=== PATIENT | female | born 1945 | race Caucasian/White ===

== ENCOUNTER → 2016-11-06 12:37 | Outpatient (CLI) | payer MEDICARE ==
[2014-12-01 11:21] VITALS: BMI 27.3
[~2016-11-06 12:37] MED LIST: ASPIRIN EC81 M1 PO; HYDROCODON-ACE1 EAC7 PO; OMEPRAZOLE PO; OMNIPRED5 ML RIGHT EYE; PEPCID AC20 MG PO; SYNTHROID100 MCG PO; SYSTANE 0.3-0.4%5 ML EACH EYE; TEMAZEPAM PO; ULTRAM50 MG PO; VIIBRYD40 MG PO; ZOCOR40 MG PO; [UNRECOGNIZED DRUG - OTHER] PO
== END | disposition home or self-care (01) ==
LOC: D.MRI 12:37
DX: M25.511 Pain in right shoulder (principal); M25.512 Pain in left shoulder

== ENCOUNTER → 2017-10-02 13:46 | Outpatient (CLI) | payer OTHER ==
[2014-12-01 11:21] VITALS: BMI 27.3
== END | disposition home or self-care (01) ==
LOC: D.MRI 13:46
DX: M75.41 Impingement syndrome of right shoulder (principal)

== ENCOUNTER → 2018-03-11 15:22 | Outpatient (CLI) | payer OTHER ==
[2014-12-01 11:21] VITALS: BMI 27.3
== END | disposition home or self-care (01) ==
LOC: D.LABREF 15:22
DX: M19.012 Primary osteoarthritis, left shoulder (principal)

== ENCOUNTER → 2018-03-12 09:41 | Outpatient (CLI) | payer OTHER ==
[2014-12-01 11:21] VITALS: BMI 27.3
== END | disposition home or self-care (01) ==
LOC: D.LABREF 09:41
DX: M19.012 Primary osteoarthritis, left shoulder (principal)

== ENCOUNTER 2018-04-16 07:00 | Inpatient (IN) | payer OTHER ==
[2018-04-11 14:42] LABS: BASOPHILS 0.8 % (0-2); EOSINOPHILS 1.9 % (0-7); HEMATOCRIT 41.5 % (36.0-48.0); HEMOGLOBIN 13.5 g/dL (12-16); IMMATURE GRANULOCYTES 0.3 % (0-5); LYMPHOCYTES 28.3 % (15-50); MCH 30.9 pg (26.0-34.0); MCHC 32.5 g/dL (31.0-37.0); MEAN PLATELET VOLUME 10.5 fL (7.4-10.4); NEUTROPHILS 61.7 % (40-80); PLATELET COUNT 249 10x3/uL (130-400); RBC 4.37 10x6/uL (4.00-5.40); RDW 13.8 % (11.5-14.5); WBC 6.5 10x3/uL (4.8-10.8)
[2018-04-11 14:53] LABS: APTT 45.1 SECONDS (22.8-39.4); INR 0.95 (0.85-1.17); PROTIME 12.2 SECONDS (11.6-15.0)
[2018-04-11 14:56] LABS: ANION GAP 14.9 mmol/L (8-16); CALCIUM 9.3 mg/dL (8.5-10.1); CARBON DIOXIDE 27.4 mmol/L (21.0-32.0); CREATININE - SERUM 1.2 mg/dL (0.6-1.3); POTASSIUM - SERUM 4.3 mmol/L (3.5-5.1)
[2018-04-11 15:04] LABS: APPEARANCE CLEAR (CLEAR); BILIRUBIN NEGATIVE (NEGATIVE); COLOR YELLOW (YELLOW); EPITHELIAL CELLS 0-5 /hpf (0-5); GLUCOSE NEGATIVE (NEGATIVE); KETONE NEGATIVE (NEGATIVE); NITRITE NEGATIVE (NEGATIVE); PROTEIN NEGATIVE (NEGATIVE); RED CELLS - URINE OCC /hpf (0-5); UROBILINOGEN NORMAL (NORMAL); WHITE CELLS - URINE 0-5 /hpf (0-5)
[~2018-04-16] VITALS: Ht 172.7 cm; Wt 78.6 kg
[~2018-04-16 07:00] MED LIST changes: +CYCLOBENZAPRINE5 MG PO
[2018-04-16] MEDS ORDERED: BUPROPION XL300 MG PO (07:51)
[2018-04-16] MEDS ORDERED: MOBIC7.5 MG PO (07:52)
[2018-04-16 07:53] VITALS: BP 102/74; BMI 26.3
--- NOTE | 2018-04-16 13:47 | OP ---
PATIENT NAME: TRACI MAYFIELD MEDICAL RECORD: [id number] :[birth year] [place] [place] [facility] [place]:04/16/18 SURGEON: DORON VILLAVICENCIO DO DATE OF OPERATION: 04/16/2018 PROCEDURE PERFORMED: Left reverse total shoulder arthroplasty. PREOPERATIVE DIAGNOSES: Left shoulder rotator cuff arthropathy and osteoarthritis. POSTOPERATIVE DIAGNOSES: Left shoulder rotator cuff arthropathy and osteoarthritis. INDICATIONS: Ms. Mayfield is a 72-year-old female that I have been treating nonoperatively for approximately a year or more with injections. She had an MRI of the left shoulder, which showed a partial rotator cuff tear over a year ago. She had been nursing it along and she got tired of the pain and weakness and got x-rays a couple months ago and it did show a high riding humeral head as well as severe osteoarthritis of the left shoulder. Knowing that, informing her that the best option would probably be reverse total shoulder as the quick recovery rather than doing a rotator cuff repair with the total shoulder, she elected to go with reverse total shoulder. She is aware of the risks and benefits including infection, bleeding, damage to nerve and vessels, need for further surgery and she consented to the procedure. SURGEON: Doron Villavicencio DO DIRECTOR OF CHILD WELFARE SERVICES: Miguel Cosme, advanced nurse practitioner DESCRIPTION OF PROCEDURE: Miguel closed and held retractors for me and assisted. Without his assistance, the surgery could not have been done. The patient received a block in the preoperative area, was given 900 mg of clindamycin preoperatively, she was taken to the operative suite, laid in supine position. LMA was placed to the left shoulder. She was then positioned in the beach chair position. The left shoulder was then prepped and draped in sterile fashion. A timeout was performed. Everyone was in agreeance with the correct side, site, patient and procedure. Incision began at the deltopectoral interval. The cephalic vein was taken medially and anticoagulation needed at that time was done with the Aquamantys. The clavipectoral fascia was then incised and the pec was released at the proximal centimeter of the insertion. The long head of the biceps tendon was tenodesed at that site as well and then cut, and then the rotator interval was opened up with scissors. The subscapularis tendon was then tagged and peeled off the humerus. The rotator cuff tear was noted in the supraspinatus at that time. There were a few fibers remaining and these were torn as soon as the shoulder was externally rotated. Once the shoulder was externally rotated, the osteophytes were removed and then a cutting guide was put up to the shoulder and marked and then it was cut with a saw. The humeral head was removed and the glenoid was exposed. The labrum was removed at that time and exposed. The centering pin was used and the drill and reamer. A 25 baseplate was put on with a 40-mm screw. Then, 2 screws were put superior and inferior, the inferior one was 26, the superior one was 22-mm. Had a good fixation with those 3 screws and then a lateralized sphere was put on after reaming around the baseplate. Once the screw was put on, impacted in place and tightened down, the humeral head was exposed of what was left, the humeral shaft and the neck, and then broaching began with the version maida at 30 OPERATIVE REPORT [id number] TRACI MAYFIELD, broached to a 6, trialled that, it seemed to fit very well. A good tight fit with the conjoined tendon with one finger tight, the deltoid fibers tight as well. This was then dislocated and then the trial was removed and the actual implant was put in a 6 stem with the 6 poly, and after irrigating thoroughly, this was reduced and a range of motion was done with the shoulder. She had good range of motion and this was thoroughly irrigated. The tobramycin and vancomycin powder was then put in deep in the wound as well as Surgicel beads. Drain was then put out through the deltoid and left in the shoulder. The drain was then sewed in with a 2-0 nylon at that time. The interval was then closed with a 0 Vicryl in a simple fashion and then the skin was closed with 2-0 Vicryl in an inverted interrupted fashion and 4-0 Monocryl ran on the skin and Prineo skin glue put on the skin. The patient was then awakened and taken to recovery in stable condition. The closing was done by Miguel Cosme. Blood loss was approximately 200 mL. COMPLICATIONS: None. TRANSINT:[id number] Voice Confirmation ID: [id number] DOCUMENT ID: [id number] DORON VILLAVICENCIO DO at 1347 CC: [id number] DICTATION DATE: 04/16/18 1215 CYLINDER DEVALVER: 04/16/18 1340 ADM IN [place] [id number] [place] [id number]
--- NOTE | 2018-04-16 14:45 | NUR ---
PT ABLE TO VOID AT THIS TIME.
--- NOTE | 2018-04-16 15:18 | NUR ---
PT RESTING COMFORTABLY AT THIS TIME, PLAN OF CARE DISCUSSED, PT VERBALIZED UNDERSTANDING, NO ACUTE DISTRESS NOTED, WILL CONTINUE TO MONITOR.
--- NOTE | 2018-04-16 16:39 | NUR ---
NO CHANGES IN ASSESSMENT, PT RESTING COMFOTABLY AT THIS TIME, NO ACUTE DISTRESS NOTED, WILL CONTINUE TO MONITOR.
--- NOTE | 2018-04-16 17:59 | NUR ---
REPORT CALLED TO MERCEDES GARZA AT THIS TIME. PT LEAVING OPS SURGERY AT THIS TIME.
--- NOTE | 2018-04-16 19:45 | NUR ---
PT REFUSED SCDS AT THIS TIME
[2018-04-16 20:00] VITALS: BP 117/55
--- NOTE | 2018-04-16 21:00 | NUR ---
PT SITTING UP IN BED, NO SIGNS OF DISTRESS. ALERT AND ORIENTED. IV RIGHT HAND INFUSING 1/2NS @ 50. LEFT ARM IN SLING. PT STATES SHE IS NOT FEELING MUCH IN ARM D/T BLOCK BUT HAS CHRONIC PAIN IN BACK STATING 12/03. GAVE DILAUDID ORDERED. GAVE NIGHT TIME MEDS. NO OTHER NEEDS OR COMPLAINTS AT THIS TIME. CL IN REACH, WILL CONTINUE TO MONITOR
[2018-04-17] VITALS: BP 105/58
[2018-04-17 00:37] VITALS: Ht 172.7 cm; Wt 78.6 kg
[2018-04-17 04:00] VITALS: BP 123/69
[2018-04-17 05:51] LABS: HEMATOCRIT 35.4 % (36.0-48.0); HEMOGLOBIN 11.7 g/dL (12-16); MCHC 33.1 g/dL (31.0-37.0); MCV 93.7 fL (80.0-100.0); MEAN PLATELET VOLUME 10.5 fL (7.4-10.4); RBC 3.78 10x6/uL (4.00-5.40); RDW 13.7 % (11.5-14.5); WBC 12.5 10x3/uL (4.8-10.8)
--- NOTE | 2018-04-17 08:20 | NUR ---
PT SEEN AND ASSESSED. STATES PAIN IN LEFT SHOULDER 08/02. PAIN MEDS GIVEN. DRESSING TO LEFT SHOULDER CLEAN DRY AND INTACT WITH BRUISING NOTED TO LEFT UPPER ARM. LEFT ARM IN SLING WITH ICE PACK NOTED. REFUSES SCDS AT PRESENT. CALL LIGHT IN REACH.
[2018-04-17 09:16] VITALS: BP 125/76
[2018-04-17 10:19] LABS: ALKALINE PHOSPHATASE 73 U/L (46-116); ALT (SGPT) 22 U/L (10-68); BILIRUBIN - TOTAL 0.31 mg/dL (0.2-1.3); CALC OSMOLALITY 282 mosm/kg (275-300); CALCIUM 8.6 mg/dL (8.5-10.1); CARBON DIOXIDE 23.4 mmol/L (21.0-32.0); CHLORIDE - SERUM 105 mmol/L (98-107); CREATININE - SERUM 0.8 mg/dL (0.6-1.3); GLUCOSE 132 mg/dL (74-106); POTASSIUM - SERUM 4.2 mmol/L (3.5-5.1); PROTEIN - SERUM 6.5 g/dL (6.4-8.2); SODIUM 140 mmol/L (136-145); UREA NITROGEN 18 mg/dL (7-18); eGFR NON AFRICAN AMERICAN 75 mL/min (90-120)
[2018-04-17 12:00] VITALS: BP 105/48
[2018-04-17] MEDS ORDERED: VISTARIL50 MG PO (14:45)
[2018-04-17] MEDS ORDERED: oxyCODONE IR PO (14:45)
--- NOTE | 2018-04-17 15:39 | MORECARE ---
CASE MANAGEMENT DISCHARGE SUMMARY PATIENT: TRACI MAYFIELD UNIT: [id number] ADM DATE: 04/16/18 AGE: 72 : 46 SEX: F ROOM/BED: D.2223 AUTHOR: EKTA LOZANO PHYSICIAN: REFERRING PHYSICIAN: BELIA VILLAVICENCIO DO DATE OF SERVICE: 04/17/18 Discharge Plan Patient Name: TRACI MAYFIELD Facility: [facility]:[place] : 1945 Planned Disposition: Home Anticipated Discharge Date: 04/17/18 Discharge Date: Expected LOS: 1 Initial Reviewer: [email or web address] Initial Review Date: 04/17/2018 Generated: 04/17/18 4:39 pm Patient Name: TRACI MAYFIELD Page [id number] at 1539 All edits/amendments must be made on the electronic document DICTATION DATE: 04/17/18 153 LEADLIGHTER: ANDRES 04/17/18 153 RPT#: [id number] DC DATE: STATUS: ADM IN [facility] [address] [place] [address] END OF REPORT
--- NOTE | 2018-04-17 15:50 | MORECARE ---
CASE MANAGEMENT DISCHARGE SUMMARY PATIENT: TRACI MAYFIELD UNIT: [id number] ADM DATE: 04/16/18 AGE: 72 : 46 SEX: F ROOM/BED: D.2223 AUTHOR: MARTA,DOC PHYSICIAN: REFERRING PHYSICIAN: BELIA VILLAVICENCIO DO DATE OF SERVICE: 04/17/18 Discharge Plan Patient Name: TRACI MAYFIELD Facility: [facility]:[place] : 1945 Planned Disposition: Home Anticipated Discharge Date: 04/17/18 Discharge Date: Expected LOS: 1 Initial Reviewer: [email or web address] Initial Review Date: 04/17/2018 Generated: 04/17/18 4:50 pm Comments DCP- Discharge Planning Updated by [email or web address]: Carline Gilliland on 04/17/18 2:[address] Patient Name: TRACI MAYFIELD Admission Status: Elective Accout number: [id number] Admission Date: 04-16-2018 : 1945 Admission Diagnosis: Attending: BELIA VILLAVICENCIO Current LOS: 1 Anticipated DC Date: 04-17-2018 Planned Disposition: Home Primary Insurance: [employer] Discharge Planning Comments: CM met with patient and her to discuss discharge planning/needs. She lives with her in a single story house. She is independent with all ADL's and IADL's. She is wearing her sling on her left arm. States she has no other DME needs at this time. She is going home today, her is driving her home. Declines need for home health. CM will continue to follow and assist with discharge planning/needs. Inbound Call Center Representative: Carline Gilliland DCPIA - Discharge Planning Initial Assessment Updated by [email or web address]: Carline Gilliland on 04/17/18 3:42 pm * Is the patient Alert and Oriented? Yes * How many steps to enter\exit or inside your home? 1/0 * PCP Vik Schmidt in [place] * Pharmacy [facility] [place] [address] * Preadmission Environment Home with Family * ADLs Independent * Equipment CPAP * List name and contact numbers for known caregivers / representatives who currently or will assist patient after discharge: Jordy - - [phone] * Verbal permission to speak to the caregivers and representatives has been obtained from the patient. Yes * Community resources currently utilized None * Please name any agencies selected above. CPAP supplies from [facility] * Additional services required to return to the preadmission environment? No * Can the patient safely return to the preadmission environment? Yes * Has this patient been hospitalized within the prior 30 days at any hospital? No Last DP export: 04/17/18 2:39 p Patient Name: TRACI MAYFIELD Page [phone] at 1550 All edits/amendments must be made on the electronic document DICTATION DATE: 04/17/181548 PALM AND BACK FORGER: ANDRES 04/17/181548 RPT#: [id number] DC DATE: STATUS: ADM IN [facility] [address] [place] [address] END OF REPORT
--- NOTE | 2018-04-17 15:54 | NUR ---
DISCHARGE INSTRUCTIONS GIVEN. SEEMS TO UNDERSTAND INSTURCITONS. IV OUT TIP INTACT. NO SIGNS OF DISTRESS. EDITH DRAIN REMOVED BY DOCTOR. LEFT WITH HOSPITAL STAFF TO PERSONAL RIDE TO GO HOME WITH .
--- NOTE | 2018-04-19 10:26 | MORECARE ---
CASE MANAGEMENT DISCHARGE SUMMARY PATIENT: TRACI MAYFIELD UNIT: [id number] ADM DATE: 04/16/18 AGE: 72 : 47 SEX: F ROOM/BED: D.2223 AUTHOR: MARTADOC PHYSICIAN: REFERRING PHYSICIAN: BELIA VILLAVICENCIO DO DATE OF SERVICE: 04/19/18 Discharge Plan Patient Name: TRACI MAYFIELD Facility: [facility]:[place] : 1945 Planned Disposition: Home Anticipated Discharge Date: 04/17/18 Discharge Date: 04/17/2018 Expected LOS: 1 Initial Reviewer: [email or web address] Initial Review Date: 04/17/2018 Generated: 04/19/18 11:26 am Comments DCP- Discharge Planning Updated by [email or web address]: Carline Gilliland on 04/17/18 2:[address] Patient Name: TRACI MAYFIELD Admission Status: Elective Accout number: [id number] Admission Date: 04-16-2018 : 1945 Admission Diagnosis: Attending: BELIA VILLAVICENCIO Current LOS: 1 Anticipated DC Date: 04-17-2018 Planned Disposition: Home Primary Insurance: [employer] Discharge Planning Comments: CM met with patient and her to discuss discharge planning/needs. She lives with her in a single story house. She is independent with all ADL's and IADL's. She is wearing her sling on her left arm. States she has no other DME needs at this time. She is going home today, her is driving her home. Declines need for home health. CM will continue to follow and assist with discharge planning/needs. Process Control Manager: Carline Gilliland DCPIA - Discharge Planning Initial Assessment Updated by [email or web address]: Carline Gilliland on 04/17/18 3:42 pm * Is the patient Alert and Oriented? Yes * How many steps to enter\exit or inside your home? 1/0 * PCP Vik Schmidt in [place] * Pharmacy [facility] [place] [address] * Preadmission Environment Home with Family * ADLs Independent * Equipment CPAP * List name and contact numbers for known caregivers / representatives who currently or will assist patient after discharge: Jordy - - [phone] * Verbal permission to speak to the caregivers and representatives has been obtained from the patient. Yes * Community resources currently utilized None * Please name any agencies selected above. CPAP supplies from [facility] * Additional services required to return to the preadmission environment? No * Can the patient safely return to the preadmission environment? Yes * Has this patient been hospitalized within the prior 30 days at any hospital? No Last DP export: 04/17/18 2:50 p Patient Name: TRACI MAYFIELD Page [id number] at 1026 All edits/amendments must be made on the electronic document DICTATION DATE: 04/19/18 1025 MEDIA SALES REPRESENTATIVE: ANDRES 04/19/18 1025 RPT#: [id number] DC DATE:04/17/18 STATUS: DIS IN [facility] [address] [place] [address] END OF REPORT
== END 2018-04-17 15:56 | disposition home or self-care (01) | DRG 483 ==
LOC: D.SDCHOLD → D.MS 07:00 → D.SDCHOLD 07:00 → D.M3 18:19 → D.MS 18:33
PROVIDERS: ADMIT Orthopaedic Surgery
PROC: 0RRK00Z Replacement of Left Shoulder Joint with Reverse Ball and Socket Synthetic Substitute, Open Approach (ICD-10-PCS; principal; 2018-04-16 09:30)
DX: M19.012 Primary osteoarthritis, left shoulder (principal)

== ENCOUNTER → 2018-10-08 09:41 | Outpatient (CLI) | payer OTHER ==
[2018-04-17 00:37] VITALS: BMI 26.3
[~2018-10-08 09:41] MED LIST changes: +BUPROPION XL300 MG PO; +MOBIC7.5 MG PO; +VISTARIL50 MG PO; +oxyCODONE IR PO
== END | disposition home or self-care (01) ==
LOC: D.MRI 09:41
PROVIDERS: ATTEND Orthopaedic Surgery
DX: M75.101 Unspecified rotator cuff tear or rupture of right shoulder, not specified as traumatic (principal)

== ENCOUNTER 2018-11-11 13:19 | Inpatient (IN) | payer OTHER ==
[~2018-11-11] VITALS: Ht 172.7 cm; Wt 81.8 kg
[~2018-11-11 13:19] MED LIST changes: -OMEPRAZOLE PO; +OMEPRAZOLE20 M1 PO; -OMNIPRED5 ML RIGHT EYE; +PREDNISOLONE 1% LEFT EYE; -TEMAZEPAM PO; +TEMAZEPAM30 MG PO
[2018-12-16] MEDS ORDERED: ZANAFLEX4 MG PO ×2 (10:29→10:30)
[2018-12-16] MEDS ORDERED: EFFEXOR37.5 MG PO (10:31)
[2018-12-16] MEDS ORDERED: UNISOM SLEEP AI25 MG PO (10:34)
[2018-12-16 11:48] LABS: BASOPHILS 0.8 % (0-2); HEMATOCRIT 41.1 % (36.0-48.0); HEMOGLOBIN 13.5 g/dL (12-16); IMMATURE GRANULOCYTES 0.2 % (0-5); LYMPHOCYTES 29.4 % (15-50); MCH 30.6 pg (26.0-34.0); MCHC 32.8 g/dL (31.0-37.0); MCV 93.2 fL (80.0-100.0); MEAN PLATELET VOLUME 10.5 fL (7.4-10.4); MONOCYTES 6.6 % (2-11); PLATELET COUNT 270 10x3/uL (130-400); RBC 4.41 10x6/uL (4.00-5.40); RDW 13.8 % (11.5-14.5); WBC 6.5 10x3/uL (4.8-10.8)
[2018-12-16 12:02] LABS: ANION GAP 11.7 mmol/L (8-16); CALCIUM 9.3 mg/dL (8.5-10.1); CARBON DIOXIDE 30.1 mmol/L (21.0-32.0); CREATININE - SERUM 0.9 mg/dL (0.6-1.3); POTASSIUM - SERUM 3.8 mmol/L (3.5-5.1); T4 THYROXINE 6.5 ug/dL (4.7-13.3); THYROID STIMULATING HORMONE 1.37 uIU/mL (0.36-3.74)
[2018-12-16 12:06] LABS: INR 1.01 (0.85-1.17); PROTIME 12.8 SECONDS (11.6-15.0)
[2018-12-16 12:07] LABS: APPEARANCE HAZY (CLEAR); APTT 49.5 SECONDS (22.8-39.4); BILIRUBIN NEGATIVE (NEGATIVE); COLOR YELLOW (YELLOW); GLUCOSE NEGATIVE (NEGATIVE); KETONE NEGATIVE (NEGATIVE); NITRITE NEGATIVE (NEGATIVE); PROTEIN NEGATIVE (NEGATIVE); UROBILINOGEN NORMAL (NORMAL); WHITE CELLS - URINE 0-5 /hpf (NEGATIVE)
[2018-12-16 12:08] LABS: BACTERIA FEW /hpf (NEGATIVE); CALCIUM OXALATE CRYSTALS OCC /hpf (NONE SEEN); EPITHELIAL CELLS 0-5 /hpf (0-5); HYALINE CAST RARE /lpf (NONE SEEN); MUCUS <1+ /lpf (NONE SEEN); RED CELLS - URINE RARE /hpf (0-5)
[2018-12-17] VITALS (7 sets, daily range): BP systolic 118–138; BP diastolic 31–79; Ht 172.7 cm; Wt 81.8 kg
--- NOTE | 2018-12-17 12:28 | NUR ---
PLASMA BLADE SET TO 6/8 BOVIE PAD LEFT THIGH [id number] EXP 04/25/20 LAMINAR FLOW IN USE TRAFFIC MONITORED IN AND OUT OF ROOM AND KEPT TO A MINIMUM PREPPED FROM SHOULDER TO FINGERS CIRCUMFERENTIALLY WITH ALCOHOL AND HIBICLENS AND THEN CHLORAPREP
--- NOTE | 2018-12-17 20:00 | NUR ---
ASSESSMENT PER FLOWSHEET. IV SALINE LOCKED TO LEFT WRIST. 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 PLACED ON BIPAP MACHINE. SKIN TEAR TO RT ELBOW NOTED WITH BILATERAL BRUISES NOTED.
--- NOTE | 2018-12-17 20:00 | NUR ---
ASSESSMENT PER FLOWSHEET. INCISION TO RT SHOULDER C/D/I. WEARING SLING. IV PATENT LEFT ARM OF 1/2NS AT 50CC'S/HR SITE CLEAR. SR UP X2 CALL LIGHT WITHIN REACH. CPAP AT BEDSIDE WEARS AT NIGHT.
--- NOTE | 2018-12-17 21:15 | NUR ---
UP TO BR WITH HELP VOIDS WELL. ASSISTED BACK TO BED.
--- NOTE | 2018-12-17 23:00 | NUR ---
IV PLACED ON HOLD. UP INHALLWAY WITH HARMONIC ANALYST WALKED 3 LAPS TOLERATED WELL RETURNED TO ROOM AND IV WAS RECONNECTED.
--- NOTE | 2018-12-18 00:08 | NUR ---
RESTING QUIETLY DENIES NEEDS.
[2018-12-18 00:50] VITALS: BP 140/61
[2018-12-18 05:34] VITALS: BP 102/46
[2018-12-18 06:12] LABS: BASOPHILS 0.1 % (0-2); EOSINOPHILS 0 % (0-7); HEMATOCRIT 33.4 % (36.0-48.0); HEMOGLOBIN 10.9 g/dL (12-16); IMMATURE GRANULOCYTES 0.3 % (0-5); LYMPHOCYTES 10.5 % (15-50); MCH 29.5 pg (26.0-34.0); MCHC 32.6 g/dL (31.0-37.0); MEAN PLATELET VOLUME 10.4 fL (7.4-10.4); MONOCYTES 8.5 % (2-11); NEUTROPHILS 80.6 % (40-80); PLATELET COUNT 223 10x3/uL (130-400); RDW 13.6 % (11.5-14.5)
[2018-12-18 06:27] LABS: ANION GAP 11.5 mmol/L (8-16); CALCIUM 8.8 mg/dL (8.5-10.1); CARBON DIOXIDE 26.4 mmol/L (21.0-32.0); CREATININE - SERUM 0.8 mg/dL (0.6-1.3); POTASSIUM - SERUM 3.9 mmol/L (3.5-5.1)
[2018-12-18 06:41] LABS: MCV 90.3 fL (80.0-100.0); WBC 8.9 10x3/uL (4.8-10.8)
[2018-12-18] MEDS ORDERED: VISTARIL50 MG PO (07:13)
[2018-12-18] MEDS ORDERED: DILAUDID4 MG PO (07:14)
--- NOTE | 2018-12-18 08:12 | NUR ---
PT RESTING IN BED. STATES, "LOP IS 05/05." NO S/S OF ACUTE DISTRESS. CL IN PLACE.
[2018-12-18 09:00] VITALS: BP 110/47
--- NOTE | 2018-12-18 09:31 | MORECARE ---
CASE MANAGEMENT DISCHARGE SUMMARY PATIENT: TRACI MAYFIELD UNIT: [id number] ADM DATE: 12/17/18 AGE: 73 : [birth year] SEX: F ROOM/BED: D.2239 AUTHOR: EKTA LOZANO PHYSICIAN: REFERRING PHYSICIAN: BELIA VILLAVICENCIO DO DATE OF SERVICE: 12/18/18 Discharge Plan Patient Name: TRACI MAYFIELD Facility: [facility]:[place] : 1945 Planned Disposition: Home Anticipated Discharge Date: 12/18/18 Discharge Date: Expected LOS: 1 Initial Reviewer: [email or web address] Initial Review Date: 12/18/2018 Generated: 12/18/18 10:31 am Comments DCP- Discharge Planning Updated by [email or web address]: Carline Gilliland on 12/18/18 8:[address] Patient Name: TRACI MAYFIELD Admission Status: Elective Accout number: [id number] Admission Date: 12-17-2018 : 1945 Admission Diagnosis: Attending: BELIA VILLAVICENCIO Current LOS: 1 Anticipated DC Date: 12-18-2018 Planned Disposition: Home Primary Insurance: [employer] Discharge Planning Comments: CM met with patient to complete initial dc planning assessment. CM educated patient on the CM role and verbal consent given by patient to complete assessment. Patient lives at home with her spouse. At discharge patient plans to return and feels this is a safe discharge. CM discussed availability of home health, rehab services, and medical equipment. Patient denied known discharge needs at this time. States Dr. Villavicencio had ordered an ice machine and a ROM chair for her arm and it has already been delivered to her home. CM will continue to follow and will assist as needed with dc plans/needs. Supervisor Assembly: Carline Gilliland DCPIA - Discharge Planning Initial Assessment Updated by [email or web address]: Carline Gilliland on 12/18/18 9:28 am * Is the patient Alert and Oriented? Yes * How many steps to enter\exit or inside your home? 1/0 * PCP Dr. Vik Schmidt * Pharmacy [facility] [place] [address] * Preadmission Environment Home with Family * ADLs Independent * Equipment CPAP Other * Other Equipment Sling on right arm Ice machine Chair for ROM * List name and contact numbers for known caregivers / representatives who currently or will assist patient after discharge: Jordy morales - [phone] * Verbal permission to speak to the caregivers and representatives has been obtained from the patient. Yes * Community resources currently utilized None * Additional services required to return to the preadmission environment? No * Can the patient safely return to the preadmission environment? Yes * Has this patient been hospitalized within the prior 30 days at any hospital? No Patient Name: TRACI MAYFIELD Page [phone] at 0931 All edits/amendments must be made on the electronic document DICTATION DATE: 12/18/18930 COIN MACHINE COLLECTOR: ANDRES 12/18/18930 RPT#: [id number] DC DATE: STATUS: ADM IN [address] [place] [address] END OF REPORT
[2018-12-18 12:05] VITALS: BP 92/72
[2018-12-18 12:54] LABS: APPEARANCE HAZY (CLEAR); BACTERIA FEW /hpf (NEGATIVE); BILIRUBIN NEGATIVE (NEGATIVE); COLOR YELLOW (YELLOW); EPITHELIAL CELLS OCC /hpf (0-5); GLUCOSE NEGATIVE (NEGATIVE); KETONE NEGATIVE (NEGATIVE); MUCUS <1+ /lpf (NONE SEEN); NITRITE NEGATIVE (NEGATIVE); PROTEIN NEGATIVE (NEGATIVE); UROBILINOGEN NORMAL (NORMAL); WHITE CELLS - URINE RARE /hpf (NEGATIVE)
[2018-12-18 12:56] LABS: AMORPHOUS SEDIMENT <1+ /lpf (NONE SEEN); RED CELLS - URINE RARE /hpf (0-5)
--- NOTE | 2018-12-18 13:32 | NUR ---
IV DC WITH TIP INTACT. URINE COLLECTED USING STERILE TECHNIQUE FOR UA/TEXTILE DESIGNS SALES REPRESENTATIVE. ALL BELONGINGS TAKEN OUT BY . DC INSTRUCTIONS AND EDUCATION DONE WITH PT. PT TAKEN DOWN VIA WC BY MENTAL HEALTH PROGRAM SPECIALIST. NO S/S OF ACUTE DISTRESS.
--- NOTE | 2018-12-18 14:45 | OP ---
PATIENT NAME: TRACI MAYFIELD MEDICAL RECORD: [id number] :[birth year] LOCATION:[id number] ADMISSION DATE:12/17/18 SURGEON: BELIA VILLAVICENCIO DO DATE OF OPERATION: 12/17/2018 PROCEDURE PERFORMED: A right total shoulder arthroplasty with rotator cuff repair using Regeneten. PREOPERATIVE DIAGNOSIS: Right shoulder osteoarthritis with a partial rotator cuff tear of the supraspinatus. POSTOPERATIVE DIAGNOSIS: Right shoulder osteoarthritis with a partial rotator cuff tear of the supraspinatus. INDICATIONS: Ms. Mayfield is a 73-year-old female who had her left shoulder reverse done for rotator cuff tear sometime ago. The right shoulder is bothering her. X-rays were done and severe osteoarthritis was seen on the MRI as well as a partial tear of the supraspinatus. I informed her we could try the reverse but due to the fact that the tear was not complete a total shoulder would be better and do a rotator cuff repair with it. She was okay with that decision and was informed of the risks including infection, bleeding, damage to nerves and vessels, dislocation, need for further surgery, fracture, and she signed the consent. SURGEON: Belia Villavicencio DO. I was assisted by Miguel Cosme, advanced nurse practitioner. DESCRIPTION OF PROCEDURE: The patient received a block by anesthesia in the preoperative area, was given 900 mg of clindamycin preoperatively. The patient was then taken to the operative suite, laid in supine position, given general anesthetic, and intubated. The patient was then positioned in the beach chair position. The right shoulder was prepped and draped in sterile fashion. A timeout was performed and every one was agreeance with the correct side, site, patient and procedure. Once that was completed, the incision was made along the deltopectoral interval with a 10 blade scalpel. The incision was made and then plasma knife was used to go through the subcutaneous fat down to the deltopectoral interval. The deltopectoral interval was then opened. The proximal centimeter of the pec attachment was released and the long head of the bicep tendon was stitched to the stump. The Aquamantys was used throughout the procedure to coagulate any bleeders. The rotator interval was then opened with a pickup and scissors and the subscapularis tendon was tagged. Once it was tagged, the plasma knife was used to peel it off, the lesser tuberosity exposing humeral head. The guide was then put in, humeral head was cut and a simplicity #2 sizer was used. The centering pin was used and the punch was used and the protector for the humeral head was put on. The glenoid was then exposed and the subscap was released with a Holt off the anterior aspect of the scapula. The bone exposure was done and the labrum was removed. A centering pin was used. Reamer was then used for a 30 small glenoid component. This was then sized and drilled and then the peripheral pegs were put in. The trial was then put in. It fit very well and then, cement was mixed. This was irrigated. Cement was put into the holes and on to the prosthesis, it was impacted into place and held into place while the cement dried. Once cement had dried, the humeral head was then exposed. The head was sized and sized to be a 50 x 19. Once this was trialled, the shoulder had good 50% bounce back as it was trialled. This size was then put in. The subscap was repaired with 3, 2.9 JuggerKnot, anchors in OPERATIVE REPORT [id number] TRACI MAYFIELD the lesser tuberosity. Once this was secured down with those JuggerKnots, the supraspinatus was exposed and Regeneten was put on, first stapling medially and then laterally onto the greater tuberosity covering up the 30% bursal-sided tear. The rotator interval was also closed with suture in a [id number] fashion. The shoulder was then ranged and ranged very well in all planes of motion and good 50% bounce back as it was pushed posteriorly. The site was then thoroughly irrigated and the incision was closed with #1 Vicryl simple fashion, 2-0 Vicryl in inverted interrupted fashion, 4-0 Monocryl was run in the skin and Prineo glue was placed on the skin. The patient was then awakened and taken to recovery in stable condition. Blood loss approximately 100 mL. COMPLICATIONS: None. TRANSINT:[id number] Voice Confirmation ID: [id number] DOCUMENT ID: [id number] BELIA VILLAVICENCIO DO at 1445 CC: [id number] DICTATION DATE: 12/17/18 1315 SOCCER REFEREE: 12/17/18 [id number] DIS IN 12/18/18 [facility] [address] [place] [address]
--- NOTE | 2018-12-20 14:17 | MORECARE ---
CASE MANAGEMENT DISCHARGE SUMMARY PATIENT: TRACI MAYFIELD UNIT: [id number] ADM DATE: 12/17/18 AGE: 73 : 47 SEX: F ROOM/BED: D.2239 AUTHOR: EKTA LOZANO PHYSICIAN: REFERRING PHYSICIAN: BELIA VILLAVICENCIO DO DATE OF SERVICE: 12/20/18 Discharge Plan Patient Name: TRACI MAYFIELD Facility: [facility]:[place] : 1945 Planned Disposition: Home Anticipated Discharge Date: 12/18/18 Discharge Date: 12/18/2018 Expected LOS: 1 Initial Reviewer: [email or web address] Initial Review Date: 12/18/2018 Generated: 12/20/18 3:16 pm Comments DCP- Discharge Planning Updated by [email or web address]: Carline Gilliland on 12/18/18 8:[address] Patient Name: TRACI MAYFIELD Admission Status: Elective Accout number: [id number] Admission Date: 12-17-2018 : 1945 Admission Diagnosis: Attending: BELIA VILLAVICENCIO Current LOS: 1 Anticipated DC Date: 12-18-2018 Planned Disposition: Home Primary Insurance: [employer] Discharge Planning Comments: CM met with patient to complete initial dc planning assessment. CM educated patient on the CM role and verbal consent given by patient to complete assessment. Patient lives at home with her spouse. At discharge patient plans to return and feels this is a safe discharge. CM discussed availability of home health, rehab services, and medical equipment. Patient denied known discharge needs at this time. States Dr. Villavicencio had ordered an ice machine and a ROM chair for her arm and it has already been delivered to her home. CM will continue to follow and will assist as needed with dc plans/needs. French Professor: Carline Gilliland DCPIA - Discharge Planning Initial Assessment Updated by [email or web address]: Carline Gilliland on 12/18/18 9:28 am * Is the patient Alert and Oriented? Yes * How many steps to enter\exit or inside your home? 1/0 * PCP Dr. Vik Schmidt * Pharmacy [facility] [place] [address] * Preadmission Environment Home with Family * ADLs Independent * Equipment CPAP Other * Other Equipment Sling on right arm Ice machine Chair for ROM * List name and contact numbers for known caregivers / representatives who currently or will assist patient after discharge: Jordy morales - [phone] * Verbal permission to speak to the caregivers and representatives has been obtained from the patient. Yes * Community resources currently utilized None * Additional services required to return to the preadmission environment? No * Can the patient safely return to the preadmission environment? Yes * Has this patient been hospitalized within the prior 30 days at any hospital? No Last DP export: 12/18/18 8:31 a Patient Name: TRACI MAYFIELD Page [id number] at 1417 All edits/amendments must be made on the electronic document DICTATION DATE: 12/20/181415 FIELD SUPERVISOR SEED PRODUCTION: ANDRES 12/20/181415 RPT#: [id number] DC DATE:12/18/18 STATUS: DIS IN [facility] [address] [place] [address] END OF REPORT
== END 2018-12-18 13:36 | disposition home or self-care (01) | DRG 483 ==
LOC: D.SDCHOLD 12-17 06:57 → D.MS 12-17 06:57 → D.SDCHOLD 12-17 07:00 → D.MS 12-17 14:01
PROVIDERS: Internal Medicine Nephrology; ADMIT Orthopaedic Surgery; ATTEND Orthopaedic Surgery
PROC: 0RRJ0JZ Replacement of Right Shoulder Joint with Synthetic Substitute, Open Approach (ICD-10-PCS; principal; 2018-12-17 09:15)
PROC: 0LQ10ZZ Repair Right Shoulder Tendon, Open Approach (ICD-10-PCS; 2018-12-17 09:15)
DX: M19.011 Primary osteoarthritis, right shoulder (principal); F17.213 Nicotine dependence, cigarettes, with withdrawal; M75.111 Incomplete rotator cuff tear or rupture of right shoulder, not specified as traumatic; K21.9 Gastro-esophageal reflux disease without esophagitis; E03.9 Hypothyroidism, unspecified; J43.9 Emphysema, unspecified; G47.33 Obstructive sleep apnea (adult) (pediatric)

== ENCOUNTER → 2019-01-29 11:02 | Outpatient (CLI) | payer OTHER ==
[2018-12-17 15:07] VITALS: BMI 27.4
[~2019-01-29 11:02] MED LIST changes: +DILAUDID4 MG PO; +EFFEXOR37.5 MG PO; +UNISOM SLEEP AI25 MG PO; +ZANAFLEX4 MG PO
== END | disposition home or self-care (01) ==
LOC: D.MRI 11:02
PROVIDERS: ATTEND Orthopaedic Surgery
DX: M54.12 Radiculopathy, cervical region (principal)

== ENCOUNTER → 2019-05-27 14:00 | Outpatient (CLI) | payer OTHER ==
[2018-12-17 15:07] VITALS: BMI 27.4
== END | disposition home or self-care (01) ==
LOC: D.MRI 14:00
PROVIDERS: ATTEND Neurological Surgery
DX: M54.16 Radiculopathy, lumbar region (principal)